=== PATIENT | male | born 1990 | race Caucasian/White ===

== ENCOUNTER 2016-09-30 17:41 | Emergency (ER) | payer SELFPAY ==
--- NOTE | ~2016-09-30 | CR210 ---
[facility] A Service of [facility] RADIOLOGY TEXT RESULTS PATIENT: CARLOS PUENTE LOCATION: [facility] : [birth year] UNIT #: [id number] AGE: [address]: Brigido Cid MD SEX: M ORDER DR: [id number] [facility] [address] [place], [place] [address] [id number] MR#: [id number] Acc #: [id number] NAME: CARLOS PUENTE : 1990 SEX: M STUDY DATE/TIME: 09/30/2016 17:32 UNIT: [facility] ROOM: STUDY DESCRIPTION: CR Ribs Uni 2 View W PA Ch Lt Attending Physician: Brigido Cid M.D. Ordering Physician: Brigido Cid M.D. Primary Care Physician: Primary Care Physician No MEDICAL IMAGING REPORT This report is preliminary unless electronic signature is present EXAM PA chest with AP and oblique views of the left ribs COMPARISON 2 views of the chest dated May 01, 2009. INDICATIONS 26-year-old male with left-sided rib pain after falling today. FINDINGS Cardiomediastinal silhouette is within normal limits. No evidence of pneumothorax, pleural effusion or acute airspace disease. Chronic degenerative and/or post-traumatic changes seen at the distal left clavicle at the acromioclavicular joint. No evidence of rib fracture. IMPRESSION No acute abnormality. No evidence of rib fracture. Dictated by... Wolfgang Browning M.D. THIS IS AN ELECTRONICALLY VERIFIED REPORT Wolfgang Browning M.D. at 10/04/2016 7:37 AM NAZIA/johnny TD: 09/30/2016 22:17 JOB #: [id number] MEDICAL IMAGING REPORT Page 1 of 1 COPY
--- NOTE | ~2016-09-30 | EKG ---
PATIENT: CARLOS PUENTE UNIT #: [id number] Ventricular Rate: 84 BPM Atrial Rate: 84 BPM P-R Interval: 126 ms QRS Duration: 84 ms Q-T Interval: 406 ms QTC Calculation(Bezet): 479 ms P [place]: 67 degrees Calculated R [place]: 15 degrees Calculated T [place]: 17 degrees Diagnosis Line: Normal sinus rhythm Diagnosis Line: RSR' or QR pattern in V1 suggests right Diagnosis Line: ventricular conduction delay Diagnosis Line: Minimal voltage criteria for LVH, may be normal Diagnosis Line: variant Diagnosis Line: Nonspecific T wave abnormality Diagnosis Line: Prolonged QT Diagnosis Line: Abnormal ECG Diagnosis Line: No previous ECGs available Diagnosis Line: Confirmed by INO ECHEVERRIA MD ([id number]) on 09/30/2016 Diagnosis Line: 10:59:41 PM INTERPRETING MD: JUWAN NAVARRO
[2016-09-30 17:32] LABS: BASOPHIL# 0.1 X10e3 (0-0.3); BASOPHIL% 0.8 % (0-2.5); DIFF IND NO; EOSINOPHIL# 0.1 X10e3 (0-0.7); HEMATOCRIT 39.7 % (38.0-50.0); HEMOGLOBIN 13.5 gm/dL (13.0-16.0); LYMPHOCYTE# 2.1 X10e3 (1.0-3.5); LYMPHOCYTE% 14.5 % (17.0-45.0); MEAN CELL VOLUME 89.7 FL (83-96); MEAN CORPUSCULAR HEMOGLOBIN 30.5 PG (28-34); MEAN PLATELET VOLUME 8.4 FL (6.5-11.5); MONOCYTE# 1.4 X10e3 (0-1.0); MONOCYTE% 9.9 % (3.0-12.0); NEUTROPHIL# 10.6 X10e3 (1.5-7.1); NEUTROPHIL% 73.8 % (40-75); PLATELET COUNT 226 X10e3 (140-420); RED BLOOD COUNT 4.42 X10e (3.90-5.60); RED CELL DISTRIBUTION WIDTH 13.2 % (11.0-15.5); WHITE BLOOD COUNT 14.4 X10e3 (4.0-10.5)
[~2016-09-30 17:41] MED LIST: BACTRIM DS TABL1 TAB PO; TYLOX 5/500 CAP1 CAP PO
[2016-09-30 17:55] LABS: BILIRUBIN, DIRECT 0.2 mg/dL (0.0-0.2); BILIRUBIN,INDIRECT 1.5 mg/dL (0.0-0.9); BILIRUBIN,TOTAL 1.7 mg/dL (0.2-2.0); BUN/CREATININE RATIO 15.71; CALCIUM SERUM 9.6 mg/dL (8.4-10.2); CREATININE SERUM 1.4 mg/dL (0.6-1.4); GLOM FILT RATE Estimated 68.9 mL/min (>60); POTASSIUM 3.2 mmol/L (3.5-5.1); PROTEIN TOTAL SERUM 8.4 g/dL (6.0-8.3)
[2016-09-30 18:11] LABS: POC - CKMB 2.9 ng/mL (0.0-7.9); POC - TROPONIN <0.05 ng/mL (<=0.05)
== END 2016-09-30 21:35 | disposition home or self-care (01) ==
LOC: CED 17:41
PROVIDERS: Emergency Medicine
DX: R07.89 Other chest pain (principal); R06.02 Shortness of breath; F17.200 Nicotine dependence, unspecified, uncomplicated; F15.10 Other stimulant abuse, uncomplicated
CPT/HCPCS: 36415; 71101; 80048; 80076; 82553; 83690; 84484; 85025; 85379; 93005; 96361; 96374; 96375; 99284; J1885; J2060